=== PATIENT | female | born 1985 | race Caucasian/White ===

== ENCOUNTER 2019-05-16 10:11 | Outpatient (CLI) | payer OTHER ==
--- NOTE | 2019-05-16 12:29 | ULT ---
LEFT BREAST DIAGNOSTIC MAMMOGRAM: Indication: Palpable abnormality in the left breast, 12 o'clock position, 8 cm from the nipple. FINDINGS: No suspicious sonographic abnormality is seen within the palpable region. IMPRESSION: No suspicious sonographic abnormality within the palpable region of interest. 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 Negative imaging should not deter biopsy find ings if clinical examinations are suspicious. POS: OFF
== END 2019-05-16 10:12 | disposition home or self-care (01) ==
LOC: BICMAMMO 10:11
PROVIDERS: ATTEND Advanced Practice Midwife
DX: N64.4 Mastodynia (principal)
CPT/HCPCS: 77066; G0279

== ENCOUNTER 2023-03-15 08:16 | Outpatient (CLI) | payer BC | END 2023-03-15 08:17 | disposition home or self-care (01) | LOC: BICULT 08:16 | PROVIDERS: ATTEND Family Medicine | DX: R31.9 Hematuria, unspecified (principal) | CPT/HCPCS: 76770 ==

== ENCOUNTER 2023-08-21 08:05 | Outpatient (CLI) | payer BC ==
[2023-08-21] MEDS ORDERED: Iopamidol-370 76% 500 ML MDV (1 ML CHARGE) ONE (10:45)
== END 2023-08-21 08:06 | disposition home or self-care (01) ==
LOC: CT 08:05
PROVIDERS: ATTEND Urology
DX: R31.29 Other microscopic hematuria (principal)
CPT/HCPCS: 74178